=== PATIENT | female | born 1990 | race African-American/Black ===

== ENCOUNTER → 2022-10-18 | Emergency (ER) | payer MEDICAID ==
[~2022-10-18] VITALS: Ht 170.2 cm; Wt 80.0 kg
[2022-10-18 05:49] VITALS: BP 146/99
== END | disposition left against medical advice (07) ==
LOC: ER 05:30
DX: F41.9 Anxiety disorder, unspecified (principal); F12.10 Cannabis abuse, uncomplicated

== ENCOUNTER 2023-03-20 14:02 | Emergency (ER) | payer MEDICAID ==
[~2023-03-20] VITALS: Ht 167.6 cm; Wt 73.1 kg
[2023-03-20 22:24] LABS: Basophils # (auto) 0 10 ^3/uL (0-0.2); Eosinophils # (auto) 0.1 10 ^3/uL (0-0.8); Eosinophils % (auto) 1.9 % (0.0-7.0); Hemoglobin 11.4 g/dL (12.2-16.2); Lymphocytes # (auto) 2.4 10 ^3/uL (0.4-5.4); Monocytes # (auto) 0.6 10 ^3/uL (0-1.3); Nucleated Red Blood Cells % 0.2 %
[2023-03-20 22:26] LABS: Basophils % (auto) 0.8 % (0.0-2.0); Hematocrit 35.5 % (36.0-46.0); Lymphocytes % (auto) 44.2 % (10.0-50.0); Mean Corpuscular Hemoglobin 25.4 pg (28.0-32.0); Mean Corpuscular Hgb Conc. 32.1 g/dL (32.0-36.0); Mean Corpuscular Volume 79.1 fL (80.0-100.0); Monocytes % (auto) 10.4 % (0.0-12.0); Neutrophils # (auto) 2.3 10 ^3/uL (1.6-8.6); Neutrophils % (auto) 42.7 % (37.0-80.0); Red Blood Cells 4.49 10^6/uL (4.0-5.20); Red Cell Distribution Width 16.4 % (11.8-14.3); White Blood Cell 5.4 10^3/uL (4.4-10.8)
[2023-03-20 22:40] LABS: Anion Gap 4 (5-15); Blood Urea Nitrogen 10 mg/dL (7-18); Calcium 8.4 mg/dL (8.5-10.1); Carbon Dioxide 27 mmol/L (21-32); Chloride 111 mmol/L (98-107); Glucose 111 mg/dL (74-106); Potassium 3.9 mmol/L (3.5-5.1); Sodium 142 mmol/L (136-145)
[2023-03-20 22:44] LABS: Alanine Aminotransferase 23 U/L (13-56); Alkaline Phosphatase 87 U/L (45-117); Aspartate Aminotransferase 11 U/L (15-37); BUN/Creatinine Ratio 12.8 (10.0-20.0); Bilirubin, Total 0.2 mg/dL (0.2-1.0); Blood Alcohol < 3.0 mg/dL (0-5); GFR African American 110 mL/min; GFR Non-African American 91 mL/min; Total Protein 6.4 g/dL (6.4-8.2)
[2023-03-20 22:45] LABS: Acetaminophen < 2.0 ug/mL (10-30)
[2023-03-20 22:48] LABS: Urine Bacteria NONE SEEN /hpf (None Seen); Urine Blood Negative /uL (Negative); Urine Mucus FEW (None Seen); Urine WBC 15 /hpf (0 - 5)
[2023-03-20 22:54] LABS: Alcohol, Urine < 3.0 mg/dL (0-10); Amphetamine Screen, Urine POSITIVE (NEGATIVE); Barbiturate Scree,Urine NEGATIVE (NEGATIVE); Benzodiazephine Screen, Urine NEGATIVE (NEGATIVE); Cocaine Screen, Urine NEGATIVE (NEGATIVE); Phencyclidine Screen, Urine NEGATIVE (NEGATIVE)
[2023-03-20 23:04] LABS: Cannabinoid Screen, Urine POSITIVE (NEGATIVE); Opiate Scree,Urine NEGATIVE (NEGATIVE)
[2023-03-21] MEDS ORDERED: ACETAMINOPHEN 325 MG TAB PO ONE (19:00)
[2023-03-22] MEDS: QUEtiapine FUMARATE 25 MG TAB PO SCH ×2 (10:00→23:14)
[2023-03-23 14:40] VITALS: BP 116/84
== END 2023-03-23 15:04 | disposition short-term general hospital (02) ==
LOC: ER 14:02
DX: R45.851 Suicidal ideations (principal); F32.9 Major depressive disorder, single episode, unspecified; R10.2 Pelvic and perineal pain
CPT/HCPCS: 36415; 80053; 80307; 80320; 80329; 81001; 84702; 85025